=== PATIENT | female | born 1970 | race Caucasian/White ===

== ENCOUNTER → 2017-10-31 15:40 | Outpatient (CLI) | payer BC, SELFPAY ==
--- NOTE | 2017-10-31 15:46 | RAD_ITS ---
STUDY: X-RAY - CERVICAL SPINE REASON FOR EXAM: Female, 47 years old. Pain, no known injury TECHNIQUE: 5 view(s) of the cervical spine were obtained. COMPARISON: None FINDINGS: Normal anterior atlantoaxial articulation. Normal odontoid process. Normal cervical lordosis. There is mild endplate spondylosis of the C6 and C7 vertebrae. Normal disc space heights. There is multi-level osseous foraminal stenosis. The soft tissue structures are unremarkable. RAD/Cerv Spine 4 or 5 Views IMPRESSION: 1. Mild endplate spondylosis of the C6 and C7 vertebral bodies. 2. Multilevel foraminal stenosis. Electronically Signed: Daniel Jay MD at 17:00 EDT , Service support ,
--- NOTE | 2017-10-31 15:46 | RAD_ITS ---
STUDY: X-RAY - THORACIC SPINE REASON FOR EXAM: Female, 47 years old. Pain, no known injury TECHNIQUE: 3 view(s) of the thoracic spine were obtained. COMPARISON: None. FINDINGS: Normal kyphosis of the thoracic spine. There is a mild thoracolumbar levoscoliosis. There is multilevel endplate spondylosis of the thoracic vertebrae. Normal disc space heights. The soft tissue structures are unremarkable. RAD/Thoracic Spine 3 Views IMPRESSION: Mild thoracolumbar levoscoliosis. Diffuse endplate spondylosis. Electronically Signed: Daniel Jay MD at 17:03 EDT , Service support ,
== END ==
LOC: MTRAD 15:43
PROVIDERS: Family Provider Family Medicine; PCP Family Medicine; Visit Provider Nurse Practitioner Adult Health
DX: M54.2 Cervicalgia (principal); G54.0 Brachial plexus disorders
CPT/HCPCS: 72050; 72072

== ENCOUNTER → 2019-02-18 09:06 | Outpatient (CLI) | payer BC, SELFPAY ==
[2016-10-03 12:06] VITALS: BMI 42.3
[2019-02-18 09:09] LABS: Mucous, Urine 0 SEEN /hpf (<or=2+); Red Blood Cells-Urine 0 SEEN /hpf (0-5); Squamous Epithelial Cells - UA 0 SEEN /hpf (5-10)
[2019-02-18 10:35] LABS: Color, Urine Yellow (Yellow); Glucose, Dipstick Normal (Normal); Ketone-Dipstick Negative (Negative); Leukocyte Esterase-Dipstick Negative /ul (Negative); Nitrite-Dipstick Negative (Negative); Occult Blood-Urine Negative /ul (Negative); Protein-Dipstick Negative (Negative); Urine Bilirubin Dipstick Negative (Negative); Urine Clarity Clear (Clear); Urine Urobilinogen Normal (Normal)
[2019-02-18 10:46] LABS: Absolute Lymphocyte Count 3.14 X10^3/uL (0.83-4.51); Basophil% 0.9 % (0-1); Eosinophil# 0.07 X10^3/uL; Eosinophils% 0.6 % (0-5); Hematocrit 37.9 % (37-47); Hemoglobin 12.7 g/dL (12.0-15.0); Lymphocyte # 3.14 X10^3/ul (4.0); Lymphocyte % 28.5 % (19-41); Mean Corp Hgb Conc 33.5 g/dL (32-36); Mean Corpuscular Hgb 29.3 pg (27.0-32.0); Mean Corpuscular Volume 87.5 fL (81-99); Mean Platelet Vol. 11.4 fl (6.2-12.0); Monocyte% 6.3 % (0-10); NRBC Flagged by Analyzer 0 % (0-5); Neutrophil # 6.98 X10^3/uL (2.7-7.7); Neutrophil % 63.3 % (47-70); Platelet Count 337 K/mm3 (150-450); RBC Distribution Width CV 13.4 % (11.6-14.6); Red Blood Count 4.33 M/mm3 (4.2-5.4)
[2019-02-18 10:57] LABS: Bacteria 1+ /hpf (None Seen); White Blood Cells 0-5 SEEN /hpf (0-5)
[2019-02-18 11:13] LABS: ALB/GLOB Ratio 0.9 RATIO (0.9-2.4); AST(SGOT) 10 U/L (15-37); Alanine Aminotransfer ALT/SGPT 26 U/L (13-56); Albumin, Serum 3.7 g/dL (3.2-5.0); Alkaline Phosphatase 85 U/L (45-117); Anion Gap 9 (5-15); BUN 18 mg/dL (7-18); BUN/Creat Ratio 18.9 RATIO (10-20); Calcium,Total 10.1 mg/dL (8.5-10.1); Chloride 103 mmol/L (98-107); Cholesterol 205 mg/dL (200); Creatinine, Serum 0.95 mg/dL (0.55-1.02); EST Glomerular Filtration Rate 67 mL/min (>60); Est Glom Filt Rate - Afr Amer 81 mL/min (>60); Globulin 4.2 g/dL (2.2-4.2); Glucose 107 mg/dL (74-106); Hemoglobin A1c 5.5 % (4.2-6.3); High Density Lipoprotein 51 mg/dL; Potassium 3.5 mmol/L (3.5-5.1); Protein, Total 7.9 g/dL (6.4-8.2); Sodium Level 138 mmol/L (136-145); Thyroid Stim Hormone (TSH) 3.99 uIU/mL (0.358-3.74); Triglycerides 151 mg/dL; Very Low Density Lipoprotein 30 mg/dL (5-40)
== END ==
PROVIDERS: Family Provider Family Medicine; PCP Family Medicine; Visit Provider Family Medicine
DX: I10 Essential (primary) hypertension (principal); E03.9 Hypothyroidism, unspecified; E66.9 Obesity, unspecified; E78.00 Pure hypercholesterolemia, unspecified
CPT/HCPCS: 36415; 80053; 80061; 81001; 83036; 84439; 84443; 85025

== ENCOUNTER → 2019-03-06 07:27 | Outpatient (CLI) | payer BC, SELFPAY ==
--- NOTE | 2019-03-06 07:30 | BI_ITS ---
MAMMOGRAPHY - BILATERAL SCREENING REASON FOR EXAM: Female, 48 years old. Routine annual screening examination. PERTINENT HISTORY: Non-contributory. TECHNIQUE: Digital bilateral breast gabriel (3D mammographic acquisition) in the CC and MLO projections. 2-D mediolateral oblique (MLO) and craniocaudad (CC) views of both breasts were obtained. CAD: Full Field Digital Mammography with Computer Added Detection was performed. COMPARISON: None. Baseline examination. FINDINGS: Breast Composition: The breasts are heterogeneously dense, which may obscure small masses. There are no dominant masses or suspicious calcifications. Benign-appearing bilateral axillary lymph nodes. No other significant abnormalities are identified. BI/SCREEN MAMM (CAD) W/GABRIEL BILAT IMPRESSION: Negative screening mammogram. Yearly followup mammogram recommended. (A) ASSESSMENT CATEGORY: BIRADS Category 2: Benign. A letter regarding these results will be sent to the patient by the facility within 30 days. Approximately 10% of breast cancers are not detected by mammography. A normal mammogram should not delay biopsy of a clinically suspicious abnormality. [id number] Electronically Signed: Leonard William, at 8:58 EST , Service support ,
== END ==
LOC: OPBI 07:27
PROVIDERS: Family Provider Family Medicine; PCP Family Medicine; Referring Provider Family Medicine; Visit Provider Family Medicine
DX: Z12.31 Encounter for screening mammogram for malignant neoplasm of breast (principal)
CPT/HCPCS: 77063; 77067

== ENCOUNTER 2019-03-11 15:00 | Outpatient (RCR) | payer BC, SELFPAY ==
--- NOTE | 2019-02-28 15:01 | HP.PTEVAL ---
Patient's Visit Information SAVANNA BOSS is a 48 year old F referred to Physical Therapy by Yemi Martin MD with a diagnosis of Bilateral Plantar Fascitits. Date of Evaluation: 02/28/19 Physical Therapist: Pam Hale DPT - Visit Plan Frequency: 2x /Week Duration: 4 Weeks Plan: Bilateral Plantar Fascitits: US and manual therapy to plantar fascia-stretching to gastroc - Subjective Findings: She reports that she had achilles tendonitis before- more localized on the inside of the heel and under it. Left side fell in a hole this summer and it really bothered her since. Had PT last time they released them with a tool. She has tried lots of stretching and nothing is really helping. If she wears her sketchers it makes it worse- if she wears tennis shoes they are better. Has to change them in/out. Stands on her feet all day at [employer] [place]- stands on a mat. Left is worse today but normally the right is worse. Pain is located in the inner heel and under. She wears night splints daily. Pain radiates to the the calf. Describes dull and achy but also sharp/shooting. Sleep: wakes her up at night. Does not have to wear steel toed. Wears orthotics- they are 14 years old. Wears them daily. No x-rays or MRI at this time. Worst: 10 Agg: standing and shoes Best: 210 Eases: asprin, ice, changing shoes, rolling them on a frozen, night splints. PMHx: HTN Meds: levothyroxine, provastatin, losartin - Objective Posture: FH, RS, pt is overweight. Gait:bilateral outtoeing, decreased heel strike bilaterally. Hr/TR: able without pain. SLS: 30 sec without LOB mild pes planus. Observation: pes planus bilaterally in standing. Palpation: tender along medial plantar fascia and insertion in the heel. ROM: DF: left: neutral Right: 3 degrees, all other motions WFL. Strength: 5/5 throughout. Flex: Gastroc: severe, Soleus: moderate Hamstring: moderate - Goals Goal 1:: Patient will be I with HEP and progression Goal Time Frame: 4-6 Weeks Goal 2:: Patient will demo 10 degrees of DF bilaterally Goal Time Frame: 4-6 Weeks Goal 3:: Patient will report 0/10 pain for 3 days consecutively Goal Time Frame: 4-6 Weeks - Rehabilitation Potential Physical Therapy Diagnosis: Patient presents with decreased flexibility and increased inflammation along the plantar fascia increasing pain with work and ADL's. Rehabilitation Potential: Fair - Anticipated Interventions Patient/Client Instruction: Educate patient on: Benefits of Fitness Program Therapeutic Exercise to Include: Strength training, Endurance training, Balance training, Agility training, Body mechanics, Postural training, Flexibilty training, Passive ROM, Active ROM Manual Therapy Techniques to Include: Mobilization, Functional dry needling, Soft tissue mobilization For the Purpose of:: To improve nutrient delivery to tissue Cryotherapy (ice pack, ice massage): Yes Thermo therapy (hot pack): Yes Ultrasound (thermal/non thermal): Yes Thank you for the opportunity to evaluate your patient. For Medicare and Medicare HMO plans, please review the plan of care and approve it. It will need to be FAXED BACK to us at [phone] for Medicare purposes. For Medicare only, by signing this I certify the plan of care. Please let me know if there are questions or concerns regarding this plan of care. Physician Signature: Date:
--- NOTE | 2019-05-31 07:49 | HP.PT.NRP ---
HP - Discharge Summary (1) - Patient Information SAVANNA BOSS was seen in my office for initial evaluation on 02/28/19. The following Plan of Care was established for this patient: Initial Frequency: 2x /Week Initial Duration: 4 Weeks - Anticipated Interventions Patient/Client Instruction: Educate patient on: Benefits of Fitness Program Therapeutic Exercise to Include: Strength training, Endurance training, Balance training, Agility training, Body mechanics, Postural training, Flexibilty training, Passive ROM, Active ROM Manual Therapy Techniques to Include: Mobilization, Functional dry needling, Soft tissue mobilization For the Purpose of:: To improve nutrient delivery to tissue Cryotherapy (ice pack, ice massage): Yes Thermo therapy (hot pack): Yes Ultrasound (thermal/non thermal): Yes This patient was last seen in our office . Pertinent comments regarding their Physical therapy will appear below: Patient has not attended physical therapy in over 30 days- appropriate to be d/c from PT and return to MD for further evaluation as necessary. At this point I will be discontinuing this patient from physical therapy. I would be happy to see this patient again in the future if found appropriate by the physician. Thank you! ZINA BobbyT
== END 2019-03-11 19:00 | disposition home or self-care (01) ==
LOC: PT 15:00
PROVIDERS: Family Provider Family Medicine; PCP Family Medicine; Referring Provider Family Medicine; Visit Provider Family Medicine
DX: M72.2 Plantar fascial fibromatosis (principal)
CPT/HCPCS: 97035; 97140; 97161

== ENCOUNTER → 2019-10-10 09:53 | Outpatient (CLI) | payer BC, SELFPAY ==
[2016-10-03 12:06] VITALS: BMI 42.3
--- NOTE | 2019-10-10 09:56 | RAD_ITS ---
STUDY: X-RAY - LEFT ANKLE REASON FOR EXAM: Female, 49 years old. Ankle injury about a year ago, pt has pain and swelling off and on recently, lateral pain just above the heel TECHNIQUE: 3 view(s) of the ankle. COMPARISON: None. FINDINGS: Normal visualized distal tibia and fibula. Normal medial and lateral malleoli. Normal tibiotalar articulation and ankle mortise. Normal visualized talus. Prominent calcaneal spurs The visualized subtalar, talonavicular, calcaneocuboid and tarsal articulations are normal. The soft tissue structures are unremarkable. RAD/Ankle min 3 Views IMPRESSION: Calcaneal spurs, no demonstrated fracture or suspicious osseous lesion Electronically Signed: Domenico Laughlin MD at 10:15 EDT , Service support ,
== END ==
LOC: MTRAD 09:55
PROVIDERS: PCP Family Medicine; Referring Provider Family Medicine; Visit Provider Family Medicine
DX: M25.572 Pain in left ankle and joints of left foot (principal)
CPT/HCPCS: 73610

== ENCOUNTER → 2020-04-03 09:32 | Outpatient (CLI) | payer BC, SELFPAY ==
[2016-10-03 12:06] VITALS: BMI 42.3
[2020-04-03 10:43] LABS: Anion Gap 5 (5-15); BUN 21 mg/dL (7-18); BUN/Creat Ratio 26.4 RATIO (10-20); Calcium,Total 9.9 mg/dL (8.5-10.1); Chloride 107 mmol/L (98-107); EST Glomerular Filtration Rate 82 mL/min (>60); Est Glom Filt Rate - Afr Amer 99 mL/min (>60); Glucose 80 mg/dL (74-106); Sodium Level 136 mmol/L (136-145)
[2020-04-03 12:37] LABS: Microalbumin,Random Urine < 5.0 mg/L (NO RANGE EST.)
== END ==
PROVIDERS: PCP Family Medicine; Referring Provider Family Medicine; Visit Provider Family Medicine
DX: I10 Essential (primary) hypertension (principal)
CPT/HCPCS: 36415; 80048; 82043; 82570

== ENCOUNTER → 2020-04-09 08:33 | Outpatient (CLI) | payer BC, SELFPAY ==
[2016-10-03 12:06] VITALS: BMI 42.3
[2020-04-09 10:29] LABS: T4 Free Direct 0.97 ng/dL (0.76-1.46); Thyroid Stim Hormone (TSH) 2.21 uIU/mL (0.358-3.74)
== END ==
PROVIDERS: PCP Family Medicine; Referring Provider Family Medicine; Visit Provider Family Medicine
DX: E03.9 Hypothyroidism, unspecified (principal)
CPT/HCPCS: 36415; 84439; 84443

== ENCOUNTER → 2021-08-27 | Outpatient (CLI) | payer BC, SELFPAY ==
[2021-08-27 10:31] LABS: Microalbumin:Creatinine Ratio 13.6 mg/g CRE (<30 mg/g CRE)
[2021-08-27 10:50] LABS: ALB/GLOB Ratio 0.9 RATIO (0.9-2.4); AST(SGOT) 17 U/L (15-37); Alanine Aminotransfer ALT/SGPT 33 U/L (13-56); Albumin, Serum 3.7 g/dL (3.2-5.0); Alkaline Phosphatase 78 U/L (45-117); Anion Gap 7 (5-15); BUN 21 mg/dL (7-18); BUN/Creat Ratio 27.3 RATIO (10-20); Calcium,Total 10.2 mg/dL (8.5-10.1); Chloride 103 mmol/L (98-107); Creatinine, Serum 0.77 mg/dL (0.55-1.02); EST Glomerular Filtration Rate 85 mL/min (>60); Est Glom Filt Rate - Afr Amer 103 mL/min (>60); Glucose 96 mg/dL (74-106); Potassium 3.7 mmol/L (3.5-5.1); Protein, Total 7.7 g/dL (6.4-8.2); Sodium Level 135 mmol/L (136-145); Thyroid Stim Hormone (TSH) 2.93 uIU/mL (0.358-3.74)
== END | disposition home or self-care (01) ==
LOC: MTLAB 07:15
PROVIDERS: PCP Family Medicine; Referring Provider Family Medicine; Visit Provider Family Medicine
DX: I10 Essential (primary) hypertension (principal); E03.9 Hypothyroidism, unspecified
CPT/HCPCS: 36415; 80053; 82043; 82570; 84443

== ENCOUNTER 2023-03-15 16:00 | Outpatient (RCR) | payer BC, SELFPAY ==
--- NOTE | 2023-02-22 18:39 | HP.PTEVAL ---
Patient's Visit Information Visit Information Visit Information: SAVANNA BOSS is a 52 year old F referred to Physical Therapy by Dr. Diallo Burnham DPM with a diagnosis of R Achilles Tendonitis/tendonopathy. Date of Evaluation: 02/22/23 Physical Therapist: ATTILA Guillory Visit Plan Frequency: 3x /Week Duration: 6 Weeks Plan: 3X/ week for 6 weeks for foam rolling and ROM and stretching of R gastroc and HS, grasten to Achilles on the R and calf on the R, gait training (no push off) balance, R ankle strength with HEP. (Ionto is checked on the script but no dex ordered. May try in a few weeks if no progress made but will have to call Dr for dex order and check insurance) with HEP HEP: supine green strap HS stretch (20 sec X 5) and long sitting gastroc towel stretch (20 sec X 5) Subjective Subjective: Pt has a knot on the back of her heel. She has no idea how it occurred and she has had if for awhile and really noticed in in July. It has not gone anywhere. She has tried night sprints, compression, stretching it (blue rocker). They did an x-ray and sent to PT. She is getting new orthotics. is hoping that she is 60% better. She was given stretches and has been doing them since Monday (wall stretch, eccentric lowering on the R). She has iced it. 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 Today is better since she has stretched it a little more than normal. At night it is throbbing. Feels like a constant cramp in the calf today. Pain R achilles pain: Pain Intensity (Out of 10): 0 Pain Intensity Range: 6 Objective Objective: Gait: Walks with decrease stance time on the R LE and does not walk with decreased heel to toe gait pattern and push off B (worse on the R) Ankle AROM: L ankle DF 0, 64 PF, 30 INV, 15 EV R ankle DF -6, 60 PF, 30 INV, 15 EV Ankle MMT: L DF 9.5 and L PF 18.1, L INV 6.6 and L EV 6 R DF 7.1 and L PF 10.2, INV 5, EV 7.2 Standing heel and toe raises: Pt has increase pain on the R Achilles with both of these motions Palpation: large lump at the medial aspect of R achilles and very tender to the touch Pt have very tight HS and gastroc B Balance/Special Test Scores Lower Extremity Functional Score: 64 Goals Goal 1:: I HEP Rehabilitation Potential Rehabilitation Potential: Good Anticipated Interventions Patient/Client Instruction: Educate patient on: Condition and Plan of Care For the Purpose of:: To decrease pain, To decrease swelling/inflammation, To increase ROM, To improve nutrient delivery to tissue, To improve muscle performance and motor function, To improve ability to perform ADL's, To increase tolerance to activity/condition/position, To improve performance and independence with ADL's, To improve ability of physical actions for home/community/work/leisure, To improve gait and locomotor functions, To improve health of tissue, To decrease soft tissue restriction and To increase flexibility/ROM Therapeutic Exercise to Include: Strength training, Balance training, Flexibilty training, Gait and locomotor training, Neuromotor development, Passive ROM and Active ROM For the Purpose of:: To decrease pain, To decrease swelling/inflammation, To increase ROM, To improve nutrient delivery to tissue, To improve muscle performance and motor function, To improve ability to perform ADL's, To increase tolerance to activity/condition/position, To improve performance and independence with ADL's, To improve ability of physical actions for home/community/work/leisure, To improve gait and locomotor functions, To improve health of tissue, To decrease soft tissue restriction, To increase flexibility/ROM, To improve balance and To improve safety with gait Functional Training to Include: Gait training For the Purpose of:: To improve gait and locomotor functions Manual Therapy Techniques to Include: Mobilization, Passive ROM and Soft tissue mobilization Comment: deyvi For the Purpose of:: To decrease pain, To decrease swelling/inflammation, To increase ROM, To improve nutrient delivery to tissue, To increase oxygenation perfusion, To improve muscle performance and motor function, To improve performance and independence with ADL's, To improve health of tissue, To decrease soft tissue restriction and To increase flexibility/ROM Text: Thank you for the opportunity to evaluate your patient. For Medicare and Medicare HMO plans, please review the plan of care and approve it. It will need to be FAXED BACK to us at [phone] for Medicare purposes. For Medicare only, by signing this I certify the plan of care. Please let me know if there are questions or concerns regarding this plan of care. Physician Signature: Date:
--- NOTE | 2023-06-07 16:40 | HP.PTDCSUM ---
Discharge Summary D/C summary: It has been my pleasure to treat SAVANNA BOSS referred by Dr. Diallo Burnham DPSallie, with the diagnosis of R Achilles Tendonitis/tendonopathy for a total of 8 visit(s). Discharge Date: Please see the following information for a summary of their discharge status. Subjective Subjective: Pain is pretty good today, standing a lot has the pain higher than normal. Left calf is starting to hurt as well. Pain R achilles pain: Pain Intensity (Out of 10): 6 Objective Objective/Function: Managed exercises well, pain remained relatively stable throughout session. Some VC required for proper exercise technique. Goals Goal 1:: I HEP Plan Plan: 3X/ week for 6 weeks for foam rolling and ROM and stretching of R gastroc and HS, grasten to Achilles on the R and calf on the R, gait training (no push off) balance, R ankle strength with HEP. (Ionto is checked on the script but no dex ordered. May try in a few weeks if no progress made but will have to call Dr for dex order and check insurance) with HEP D/C Information d/c sentence: If there are questions or concerns regarding this patient's physical therapy, please feel free to call me at [phone]. Thank you for the referral of this patient. Sincerely, Ara Mojica, MPT Balance/Gait/Functional tests Balance/Special Test Scores Lower Extremity Functional Score: 64
== END 2023-03-15 19:00 | disposition home or self-care (01) ==
LOC: PT 16:00
PROVIDERS: PCP Family Medicine; Visit Provider Student in an Organized Health Care Education/Training Program
DX: M76.61 Achilles tendinitis, right leg (principal)
CPT/HCPCS: 97110; 97140; 97161

== ENCOUNTER → 2023-05-10 | Outpatient (CLI) | payer BC, SELFPAY ==
--- NOTE | 2023-05-10 16:06 | MRI_ITS ---
STUDY: MRI RIGHT ANKLE WITHOUT CONTRAST REASON FOR EXAM: Female, 52 years old. Achilles tendinosis, lump marked with bead. TECHNIQUE: Standardized fat and water weighted pulse sequences were obtained in all 3 orthogonal planes. COMPARISON: Left ankle radiographs dated 10/10/2019. FINDINGS: There is mild posterior tibialis tenosynovitis. Intact posterior tibialis tendon. Normal flexor digitorum longus tendon. Normal flexor hallucis longus tendon. Normal peroneus longus and brevis tendons. Normal tibialis anterior tendon. Normal extensor hallucis longus tendon. Normal extensor digitorum longus tendons. There is mild thickening/tendinosis of the distal 4 cm of the Achilles tendon with anterior surface fraying of the distal Achilles tendon insertion (sagittal STIR series 8 images 10-12). There is mild retrocalcaneal bursitis (sagittal STIR series 8 image 11). Mild marrow stress edema in the posterior calcaneal tuberosity. Normal plantar fascia. There are small plantar and posterior calcaneal spurs. Normal intrinsic muscles of the rearfoot. Normal distal tibiofibular syndesmotic ligamentous complex. Normal lateral ligamentous complex. Normal subtalar ligaments and sinus tarsi. Normal deltoid ligamentous complexes. Normal plantar calcaneonavicular (spring) ligament. Normal tibiotalar articulation. Normal talar dome. Normal subtalar articulations. Normal talonavicular articulation. Normal calcaneocuboid articulation. Normal navicular-cuneiform articulations. There is minimal subcutaneous soft tissue edema along the medial and lateral aspects of the ankle. MRI/Lower Ext Joint Only (Routine) IMPRESSION: Mild tendinosis of the distal 4 cm of the Achilles tendon with anterior surface fraying of the distal Achilles tendon insertion. Mild retrocalcaneal bursitis and mild marrow stress edema in the posterior calcaneal tuberosity. Small plantar and posterior calcaneal spurs. Minimal subcutaneous soft tissue edema along the medial and lateral aspects of the ankle. Mild posterior tibialis tenosynovitis. Electronically Signed: Juan Pablo Dennis MD at 8:58 EST ,
== END | disposition home or self-care (01) ==
LOC: MRI 16:04
PROVIDERS: PCP Family Medicine; Referring Provider Student in an Organized Health Care Education/Training Program; Visit Provider Student in an Organized Health Care Education/Training Program
DX: M76.61 Achilles tendinitis, right leg (principal)
CPT/HCPCS: 73721

== ENCOUNTER 2023-06-14 16:30 | Outpatient (RCR) | payer BC, SELFPAY ==
--- NOTE | 2023-05-31 17:46 | HP.PTEVAL ---
Patient's Visit Information Visit Information Visit Information: SAVANNA BOSS is a 52 year old F referred to Physical Therapy by Dr. Diallo Burnham DPM with a diagnosis of Posterior tibial tendonitis, retro calcaneal bursitis, Achilles tendonitis. Date of Evaluation: 05/31/23 Physical Therapist: ATTILA Guillory Visit Plan Frequency: 2-3x /Week Duration: 6 Weeks Plan: 2-3X/ week for 6 weeks for R gastroc/Achilles stretching (pt does better at stretching with her R knee slightly bent due to her R knee hyperextension), foam rolling to the R gastroc, balance, strength, proprioception. Pt feels that the graston really helpe...will call and see if can get an order for eval and treat or specifically graston.... HEP: towel stretch and slant board stretch at home with knee slightly bent Ionto not covered Subjective Subjective: Pt went back for an MRI and there is no tear. Dr said it was really inflammed. Dr said 6 more weeks of therapy. She feels that she favors her R foot a lot and walks with her R forefoot abducted. If she has a weekend when she does not do a lot it feels better and then work starts up again and at the end of the day it feels tight and pulls up into her calf, It is not as bad as when she first started PT but it is still tight and still there and can not walk as near as fast as she used too. It does not wake her up at night. She does wear a compression sleeve to work and it does not hurt as much but she is ready to take it off at the end of the day. She has new inserts inside her shoes. She goes back to the Dr in June. Stairs really hurt her especially goind down or squatting is really bad. She had an injection of cortizone before her MRI... it lasted one day. She has a slant board at home. And stretches with a towel at home Pain R heel pain: Pain Intensity (Out of 10): 0 Pain Intensity Range: 6 Comment: at end or work day Objective Objective: Gait: Walks with R forefoot into abduction and decreased heel to toe pattern. IF she walks without forefoot abduction and walks more straight on she has increase pulling of the Achilles. Pt is able to heel and toe raise.... she struggles with single eccentric lower on the R Pt hyperextends her R knee and feels more of an achilles stretch if she slightly bends her R knee. LE MMT: R DF 12.4 and L 13.3 R DF 20 and L 19.3 R INV 11 and L 11 R EV 10.2 and L 12.9 R ankle AROM 2 DF, 74 PF, 30 INV, 20 EV L ankle AROM 5, 78, 31, 20 Girth measurements: Medial to lateral Mal R 25 and L 24.6 Balance/Special Test Scores Lower Extremity Functional Score: 59 Goals Goal 1:: I HEP Goal Time Frame: 6-8 Weeks Goal 2:: Be able to walk with normal gait pattern, heel to toe, avoiding forefoot abduction Goal Time Frame: 6-8 Weeks Goal 3:: Increase R ankle DF (at time of the eval R DF 2 and L 5 Goal Time Frame: 6-8 Weeks Goal 4:: Be able to get through her day at work with 2/10 or less pain Goal Time Frame: 6-8 Weeks Goal 5:: Be able to complete 3 X 10 R eccentric lower from PF single leg without pain or weakness Goal Time Frame: 6-8 Weeks Rehabilitation Potential Rehabilitation Potential: Good Anticipated Interventions Patient/Client Instruction: Educate patient on: Condition and Plan of Care For the Purpose of:: To decrease pain, To decrease swelling/inflammation, To increase ROM, To improve nutrient delivery to tissue, To improve muscle performance and motor function, To improve ability to perform ADL's, To increase tolerance to activity/condition/position, To improve performance and independence with ADL's, To decrease level of supervision to perform tasks, To improve ability of physical actions for home/community/work/leisure, To improve gait and locomotor functions, To improve health of tissue, To decrease soft tissue restriction, To increase flexibility/ROM, To improve endurance, To improve balance and To improve safety with gait Therapeutic Exercise to Include: Strength training, Endurance training, Balance training, Postural training, Flexibilty training, Gait and locomotor training, Passive ROM and Active ROM For the Purpose of:: To decrease pain, To decrease swelling/inflammation, To increase ROM, To improve nutrient delivery to tissue, To increase oxygenation perfusion, To improve muscle performance and motor function, To improve ability to perform ADL's, To increase tolerance to activity/condition/position, To improve performance and independence with ADL's, To decrease level of supervision to perform tasks, To improve ability of physical actions for home/community/work/leisure, To improve gait and locomotor functions, To improve health of tissue, To decrease soft tissue restriction and To increase flexibility/ROM Functional Training to Include: Gait training For the Purpose of:: To improve gait and locomotor functions and To improve safety with gait Manual Therapy Techniques to Include: Mobilization, Passive ROM and Soft tissue mobilization For the Purpose of:: To decrease pain, To increase ROM, To improve nutrient delivery to tissue, To improve muscle performance and motor function, To improve gait and locomotor functions, To improve health of tissue, To decrease soft tissue restriction and To increase flexibility/ROM Text: Thank you for the opportunity to evaluate your patient. For Medicare and Medicare HMO plans, please review the plan of care and approve it. It will need to be FAXED BACK to us at [phone] for Medicare purposes. For Medicare only, by signing this I certify the plan of care. Please let me know if there are questions or concerns regarding this plan of care. Physician Signature: Date:
--- NOTE | 2023-08-01 07:29 | HP.PT.NRP ---
Patient Information Patient Information: SAVANNA BOSS was seen in my office for initial evaluation on 05/31/23. The following Plan of Care was established for this patient: POC Established Initial Frequency: 2-3x /Week Initial Duration: 6 Weeks Anticipated Interventions Patient/Client Instruction: Educate patient on: Condition and Plan of Care For the Purpose of:: To decrease pain, To decrease swelling/inflammation, To increase ROM, To improve nutrient delivery to tissue, To improve muscle performance and motor function, To improve ability to perform ADL's, To increase tolerance to activity/condition/position, To improve performance and independence with ADL's, To decrease level of supervision to perform tasks, To improve ability of physical actions for home/community/work/leisure, To improve gait and locomotor functions, To improve health of tissue, To decrease soft tissue restriction, To increase flexibility/ROM, To improve endurance, To improve balance and To improve safety with gait Therapeutic Exercise to Include: Strength training, Endurance training, Balance training, Postural training, Flexibilty training, Gait and locomotor training, Passive ROM and Active ROM For the Purpose of:: To decrease pain, To decrease swelling/inflammation, To increase ROM, To improve nutrient delivery to tissue, To increase oxygenation perfusion, To improve muscle performance and motor function, To improve ability to perform ADL's, To increase tolerance to activity/condition/position, To improve performance and independence with ADL's, To decrease level of supervision to perform tasks, To improve ability of physical actions for home/community/work/leisure, To improve gait and locomotor functions, To improve health of tissue, To decrease soft tissue restriction and To increase flexibility/ROM Functional Training to Include: Gait training For the Purpose of:: To improve gait and locomotor functions and To improve safety with gait Manual Therapy Techniques to Include: Mobilization, Passive ROM and Soft tissue mobilization For the Purpose of:: To decrease pain, To increase ROM, To improve nutrient delivery to tissue, To improve muscle performance and motor function, To improve gait and locomotor functions, To improve health of tissue, To decrease soft tissue restriction and To increase flexibility/ROM Last Seen Last Seen: This patient was last seen in our office 06/14/23. Pertinent comments regarding their Physical therapy will appear below: KATIE PT At this point I will be discontinuing this patient from physical therapy. I would be happy to see this patient again in the future if found appropriate by the physician. Thank you! Ara Mojica, ATTILA Balance/Gait/Functional tests Balance/Special Test Scores Lower Extremity Functional Score: 59
== END 2023-06-14 19:00 | disposition home or self-care (01) ==
LOC: PT 16:30
PROVIDERS: PCP Family Medicine; Referring Provider Student in an Organized Health Care Education/Training Program; Visit Provider Student in an Organized Health Care Education/Training Program
DX: M76.61 Achilles tendinitis, right leg (principal); M76.821 Posterior tibial tendinitis, right leg
CPT/HCPCS: 97110; 97140; 97161

== ENCOUNTER → 2023-07-21 | Outpatient (CLI) | payer BC, SELFPAY ==
[2023-07-21 09:26] LABS: Absolute Lymphocyte Count 2.56 X10^3/uL (0.83-4.51); Absolute Neutrophil Count 5.4 X10^3/uL (2.0-7.7); Basophil% 1.1 % (0-1); Eosinophil# 0.08 X10^3/uL; Eosinophils% 0.9 % (0-5); Hematocrit 35.7 % (37-47); Hemoglobin 12.3 g/dL (12.0-15.0); Lymphocyte # 2.56 X10^3/ul (0.83-4.51); Mean Corp Hgb Conc 34.5 g/dL (32-36); Mean Corpuscular Hgb 30.1 pg (27.0-32.0); Mean Corpuscular Volume 87.3 fL (81-99); Monocyte# 0.68 X10^3/uL; Monocyte% 7.7 % (0-10); NRBC Flagged by Analyzer 0 % (0-5); Neutrophil # 5.41 X10^3/uL (2.7-7.7); Neutrophil % 61.2 % (47-70); Platelet Count 348 K/mm3 (150-450); RBC Distribution Width CV 13.3 % (11.6-14.6); RBC Distribution Width SD 42.5 fl (35.1-43.9); Red Blood Count 4.09 M/mm3 (4.2-5.4); White Blood Count 8.8 K/mm3 (4.4-11.0)
[2023-07-21 09:53] LABS: AST(SGOT) 16 U/L (15-37); Alanine Aminotransfer ALT/SGPT 26 U/L (13-56); Albumin, Serum 3.8 g/dL (3.2-5.0); Alkaline Phosphatase 88 U/L (45-117); Anion Gap 4 (5-15); BUN 18 mg/dL (7-18); BUN/Creat Ratio 22.1 RATIO (10-20); Calcium,Total 9.9 mg/dL (8.5-10.1); Chloride 105 mmol/L (98-107); Cholesterol 193 mg/dL (200); Creatinine, Serum 0.82 mg/dL (0.55-1.02); EST Glomerular Filtration Rate 79 mL/min (>60); Est Glom Filt Rate - Afr Amer 95 mL/min (>60); Globulin 3.9 g/dL (2.2-4.2); Glucose 90 mg/dL (74-106); High Density Lipoprotein 61 mg/dL; Potassium 3.7 mmol/L (3.5-5.1); Protein, Total 7.7 g/dL (6.4-8.2); Sodium Level 136 mmol/L (136-145); T4 Free Direct 0.88 ng/dL (0.76-1.46); Thyroid Stim Hormone (TSH) 2.41 uIU/mL (0.358-3.74); Triglycerides 63 mg/dL; Very Low Density Lipoprotein 13 mg/dL (5-40)
[2023-07-22 06:09] LABS: V-Zoster IgG (Immunity) 3256 index (Immune >165)
== END | disposition home or self-care (01) ==
LOC: LAB 08:19
PROVIDERS: PCP Nurse Practitioner Family; Referring Provider Nurse Practitioner Family; Visit Provider Nurse Practitioner Family
DX: Z00.01 Encounter for general adult medical examination with abnormal findings (principal); Z78.9 Other specified health status; I10 Essential (primary) hypertension; E78.5 Hyperlipidemia, unspecified; E03.9 Hypothyroidism, unspecified
CPT/HCPCS: 36415; 80053; 80061; 84439; 84443; 85025; 86787

== ENCOUNTER → 2023-07-25 | Outpatient (CLI) | payer BC, SELFPAY ==
--- NOTE | 2023-07-25 16:32 | BI_ITS ---
MAMMOGRAPHY - BILATERAL SCREENING REASON FOR EXAM: Female, 53 years old. Routine annual screening examination. PERTINENT HISTORY: Non-contributory. TECHNIQUE: Digital bilateral breast gabriel (3D mammographic acquisition) in the CC and MLO projections. 2-D mediolateral oblique (MLO) and craniocaudad (CC) views of both breasts were obtained. CAD: Full Field Digital Mammography with Computer Added Detection was performed. COMPARISON: Comparison is made with prior study March 06, 2019. FINDINGS: Breast Composition: The breasts are heterogeneously dense, which may obscure small masses. There are no dominant masses or suspicious calcifications. Stable bilateral fat containing axillary lymph nodes. No other significant abnormalities are identified. There has been no significant change since the prior study. BI/SCRN MAMM (CAD)W/GABRIEL BILAT IMPRESSION: Stable bilateral screening mammogram. Yearly follow-up mammogram recommended. (A) ASSESSMENT CATEGORY: BIRADS Category 2: Benign. A letter regarding these results will be sent to the patient by the facility within 30 days. Approximately 10% of breast cancers are not detected by mammography. A normal mammogram should not delay biopsy of a clinically suspicious abnormality. [id number] Electronically Signed: Leonard William MD at 9:33 EDT ,
== END | disposition home or self-care (01) ==
LOC: OPBI 07-26 07:18
PROVIDERS: PCP Nurse Practitioner Family; Referring Provider Nurse Practitioner Family; Visit Provider Nurse Practitioner Family
DX: Z12.31 Encounter for screening mammogram for malignant neoplasm of breast (principal)
CPT/HCPCS: 77063; 77067

== ENCOUNTER 2023-12-01 13:39 | Emergency (ER) | payer BC, SELFPAY ==
[2023-12-01] VITALS (7 sets, daily range): BP systolic 109–122; BP diastolic 71–90; PULSE 72–87; RESP 16–18; TEMP 36.4–36.5; O2SAT 98–100; BMI 38.1
[2023-12-01 15:35] LABS: Mucous, Urine 0 SEEN /hpf (<or=2+); Red Blood Cells-Urine 0 SEEN /hpf (0-5)
[2023-12-01 15:37] LABS: Color, Urine Yellow (Yellow); Glucose, Dipstick Normal (Normal); Ketone-Dipstick Negative (Negative); Leukocyte Esterase-Dipstick 100 /ul (Negative); Nitrite-Dipstick Negative (Negative); Occult Blood-Urine Negative /ul (Negative); Protein-Dipstick Negative (Negative); Specific Gravity, Urine 1.005 (1.002-1.030); Urine Bilirubin Dipstick Negative (Negative); Urine Clarity Clear (Clear); Urine Urobilinogen Normal (Normal)
[2023-12-01 15:45] LABS: Absolute Lymphocyte Count 3.18 X10^3/uL (0.83-4.51); Absolute Neutrophil Count 8.1 X10^3/uL (2.0-7.7); Basophil# 0.09 X10^3/uL; Basophil% 0.7 % (0-1); Eosinophil# 0.07 X10^3/uL; Eosinophils% 0.6 % (0-5); Hematocrit 35.8 % (37-47); Hemoglobin 12.3 g/dL (12.0-15.0); Lymphocyte # 3.18 X10^3/ul (0.83-4.51); Lymphocyte % 25.7 % (19-41); Mean Corp Hgb Conc 34.4 g/dL (32-36); Mean Corpuscular Hgb 30.1 pg (27.0-32.0); Mean Corpuscular Volume 87.7 fL (81-99); Mean Platelet Vol. 10.7 fl (6.2-12.0); Monocyte# 0.88 X10^3/uL; Monocyte% 7.1 % (0-10); NRBC Flagged by Analyzer 0 % (0-5); Neutrophil # 8.09 X10^3/uL (2.7-7.7); Neutrophil % 65.6 % (47-70); Platelet Count 386 K/mm3 (150-450); RBC Distribution Width CV 13.2 % (11.6-14.6); RBC Distribution Width SD 42.4 fl (35.1-43.9); Red Blood Count 4.08 M/mm3 (4.2-5.4); White Blood Count 12.4 K/mm3 (4.4-11.0)
--- NOTE | 2023-12-01 15:46 | EDS_ITS ---
HPI History of Present Illness Chief Complaint: Abd Pain Informant: patient and spouse/S.O. Narrative Narrative: 53-year-old female presenting to the emergency room with left upper quadrant pain. Patient states that she began to have some discomfort on Monday. She states that she thought that it was gas but despite OTC treatment she has not improved. The patient states that her pain gets worse after eating. She states that it constantly hurts but is more discomfort but then after she eats it increases. She denies any black or bloody stools. No urinary symptoms. No history of pancreatic or biliary disease. She has been on phenteramine for the past several months. [facility] Medical History (Updated 12/01/23 @ 18:[address] Jose Luis Weber DO) Hypertension Home Medications ?Medication ?Instructions ?Recorded ?Last Taken ?Type levothyroxine 50 mcg tablet 50 mcg PO DAILY 08/16/16 10/03/16 History pravastatin 20 mg tablet 20 mg PO DAILY 08/16/16 Unknown History (Pravachol) valsartan 80 1 ea PO DAILY 08/16/16 Unknown History mg-hydrochlorothiazide 12.5 mg tablet docusate sodium 100 mg capsule 100 mg PO BID PRN PRN Constipation 10/03/16 Unknown Rx (DOK) ##60 oxycodone 5 mg tablet 5 mg PO Q6H PRN PRN Mod-Severe 10/03/16 Unknown Rx Pain (4-10/10) ##20 dicyclomine 10 mg capsule 20 mg (2 x 10 mg) PO TIDAC #30 12/01/23 Unknown Rx CAPSULES Allergy/AdvReac Type Severity Reaction Status Date / Time No Known Allergies Allergy Verified 12/01/23 15:26 Surgical History (Updated 12/01/23 @ 15:54 by Janeth Michelle) H/O: hysterectomy History of tonsillectomy Social History Smoking Status: Never smoker ROS ROS ED Constitutional Constitutional ED: Denies chills, fever(s) or weight loss Eyes Eyes: Denies change in vision or diplopia ENT ENT ED: Denies ear pain, rhinorrhea or sore throat Cardiovascular Cardiovascular: Denies chest pain, orthopnea, palpitations or racing heartbeat Respiratory/Chest Respiratory/Chest: Denies cough, dyspnea or orthopnea Gastrointestinal Gastrointestinal: Reports abdominal pain; Denies diarrhea, nausea or vomiting Genitourinary Genitourinary ED: Denies dysuria, hematuria or urinary frequency Musculoskeletal Musculoskeletal: Denies arthralgias, back pain or myalgias Integumentary Denies abscess or rash Neurologic Neurologic: Denies headache(s) or weakness Psychiatric Psychiatric: Denies anxiety, depression, suicidal ideation or suicidal thoughts Endocrine Endocrinology: Denies polydipsia, polyphagia or polyuria Allergic/Immunologic Allergic/Immunologic ED: Denies mouth swelling, tongue swelling or urticaria EXAM Physical Exam Const Vital Signs: 12/01/23 13:42 12/01/23 15:40 12/01/23 16:15 Temperature 97.7 F L Temperature Source Temporal Pulse Rate 87 74 Respiratory Rate 18 16 Blood Pressure 122/90 H 115/79 109/83 H Blood Pressure Mean 100 91 92 Pulse Ox 100 100 Oxygen Delivery Method Room Air Room Air 12/01/23 16:30 12/01/23 16:45 12/01/23 17:00 Temperature Temperature Source Pulse Rate Respiratory Rate Blood Pressure 115/76 118/71 111/84 H Blood Pressure Mean 88 85 93 Pulse Ox Oxygen Delivery Method 12/01/23 18:56 Temperature 97.6 F L Temperature Source Pulse Rate 72 Respiratory Rate 18 Blood Pressure 111/84 H Blood Pressure Mean 93 Pulse Ox 98 Oxygen Delivery Method Positive well nourished and well developed General Appearance ED: well developed HEENT Reports normocephalic, head/scalp atraumatic and moist mucous membranes Eyes PERRL and EOMs intact bilaterally Neck no lymphadenopathy, supple and no JVD Resp normal respiratory effort and clear to auscultation bilaterally Cardio regular rate, regular rhythm and no murmurs GI no masses Inspection: Negative for abdominal distention Auscultation: normoactive bowel sounds Palpation: soft and tender epigastric and LUQ; Negative for guarding or rebound tenderness present Back/Spine no CVA tenderness and normal ROM Extremity normal to inspection General Extremety ED: Negative for edema General Extremity: Negative for edema Neuro oriented x3 and CN's II-XII intact bilaterally Sensorium / Orientation: alert Motor Exam: strength 5/5 throughout Psych mental status grossly normal Mood & Affect: Negative for depressed or tearful Skin no rashes or lesions noted and no wounds MDM MDM MDM Narrative Medical decision making narrative: Differential diagnosis includes but not limited to gastric duodenal ulcer pancreatitis splenic infarct renal infarct colitis gastroparesis gastric outlet obstruction biliary colic White count 12.4 hemoglobin 12.3 plate count of 386 BUN of 23 creatinine 0.86. Normal liver panel normal lipase test is negative urinalysis 50-100 white cells 10-25 squamous cells and 1+ bacteria I think this is can contaminated. CT abdomen pelvis with IV contrast demonstrates some mild inflammatory changes around the distal transverse colon. There is noted to be cholelithiasis. I reviewed the case with gastroenterology Dr. Jacinto. He feels like this is most likely a case of mild ischemic colitis. He recommends symptomatic treatment with Bentyl and follow-up. I do not think that this is biliary colic at this time. She has no right upper quadrant tenderness over the gallbladder. Her LFTs are normal. White count is minimally elevated at 12.4. Patient is comfortable with follow-up and treatment with Bentyl. Return if worsening or concerns History & Record Review Discussion w/independent historian: Patient Lab Data Attestation: I reviewed the patient's lab results. Labs: Laboratory Results - last 24 hr 12/01/23 12/01/23 15:15 15:20 WBC 12.4 H RBC 4.08 L Hgb 12.3 Hct 35.8 L MCV 87.7 MCH 30.1 MCHC 34.4 RDW Std Deviation 42.4 RDW Coeff of Carol 13.2 Plt Count 386 MPV 10.7 Immature Gran % (Auto) 0.300 Neut % (Auto) 65.6 Lymph % (Auto) 25.7 Lassen % (Auto) 7.1 Eos % (Auto) 0.6 Baso % (Auto) 0.7 Absolute Neuts (auto) 8.1 H Absolute Lymphs (auto) 3.18 Nucleated RBC % 0 Sodium 133 L Potassium 3.5 Chloride 97 L Carbon Dioxide 28.0 Anion Gap 8 BUN 23 H Creatinine 0.86 Estim Creat Clear Calc 79.79 Est GFR (MDRD) Af Amer 89 Est GFR (MDRD) Non-Af 73 BUN/Creatinine Ratio 26.6 H Glucose 91 Calcium 11.1 H Total Bilirubin 0.50 AST 19 ALT 26 Alkaline Phosphatase 100 Total Protein 8.6 H Albumin 4.3 Globulin 4.3 H Albumin/Globulin Ratio 1.0 Lipase 22 Serum , Qual NEGATIVE Urine Color Yellow Urine Clarity Clear Urine pH 7.0 Ur Specific [place] 1.005 Urine Protein Negative Urine Glucose (UA) Normal Urine Ketones Negative Urine Occult Blood Negative Urine Nitrite Negative Urine Bilirubin Negative Urine Urobilinogen Normal Ur Leukocyte Esterase 100 H Urine RBC 0 SEEN Urine WBC 50-100 SEEN Ur Squamous Epith Cells 10-25 SEEN Urine Bacteria 1+ Urine Mucus 0 SEEN Radiography Diagnostic Testing: Clinical Impression(s) from Imaging Studies Abdomen/Pelvis CT 12/01/23 16:41 IMPRESSION: Cholelithiasis. Minimal mesenteric thickening/edema adjacent to the distal half of the transverse colon. 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 Right renal cyst. Fecal retention in the colon. Electronically Signed: Jens Boyer DO at 17:52 EDT Reading Location ID and State: [facility] / [place] Tel [phone], Service support , Discharge Plan Triage Chief Complaint: Abd Pain ED Provider: Jose Luis Weber Dx/Rx/DC Orders Clinical Impression: Abdominal pain, Ischemic colitis Instructions: Ischemic Colitis Prescriptions: New dicyclomine 10 mg capsule 20 mg PO TIDAC Qty: 30 0RF No Action valsartan-hydrochlorothiazide 1 EACH tablet 1 ea PO DAILY Patient Comments: bp levothyroxine 50 MCG tablet 50 mcg PO DAILY Patient Comments: THYROID pravastatin [Pravachol] 20 MG tablet 20 mg PO DAILY Patient Comments: CHOLESTEROL oxycodone 5 MG tablet 5 mg PO Q6H PRN PRN (Reason: Mod-Severe Pain (4-10/10)) Qty: 20 0RF docusate sodium [DOK] 100 MG capsule 100 mg PO BID PRN PRN (Reason: Constipation) Qty: 60 1RF Primary Care Provider: Karrie Herrera Referrals: Robby Jacinto DO [Med Staff - Active Staff] - 1 Week Karrie Herrera NP-C [Primary Care Provider] - Activity Restrictions/Additional Instructions: On Monday please call Dr. Jacinto's office. Advised them that you were diagnosed in the emergency room with ischemic colitis and that we spoke with Dr. Jacinto. He would like you to follow-up in around 1 week. Print Language: Greek Disposition Disposition: Home, Self Care Discharge Date/Time: 12/01/23 19:01
[2023-12-01 15:59] LABS: Bacteria 1+ /hpf (None Seen); Squamous Epithelial Cells - UA 10-25 SEEN /hpf (5-10); White Blood Cells 50-100 SEEN /hpf (0-5)
[2023-12-01 16:00] LABS: AST(SGOT) 19 U/L (15-37); Alanine Aminotransfer ALT/SGPT 26 U/L (13-56); Albumin, Serum 4.3 g/dL (3.2-5.0); Alkaline Phosphatase 100 U/L (45-117); Anion Gap 8 (5-15); BUN 23 mg/dL (7-18); BUN/Creat Ratio 26.6 RATIO (10-20); Calcium,Total 11.1 mg/dL (8.5-10.1); Chloride 97 mmol/L (98-107); Creatinine, Serum 0.86 mg/dL (0.55-1.02); EST Glomerular Filtration Rate 73 mL/min (>60); Est Glom Filt Rate - Afr Amer 89 mL/min (>60); Estimated Creatinine Clearance 79.79 ml/min; Globulin 4.3 g/dL (2.2-4.2); Glucose 91 mg/dL (74-106); Potassium 3.5 mmol/L (3.5-5.1); Protein, Total 8.6 g/dL (6.4-8.2); Sodium Level 133 mmol/L (136-145)
[2023-12-01 16:07] LABS: Internal QC Validated? YES +Cl - CLEAR BKGD; Pregnancy, Serum, hCG Quali. NEGATIVE Negative
[2023-12-01 16:10] LABS: Lipase 22 U/L (13-75)
--- NOTE | 2023-12-01 16:41 | CT_ITS ---
STUDY: CT ABDOMEN AND PELVIS WITH CONTRAST REASON FOR EXAM: Female, 53 years old. epigastric/LUQ pain RADIATION DOSAGE (If Supplied By Facility): CTDIvol = ( 18.51 ) mGy, DLP = ( 1185.84 ) mGycm TECHNIQUE: Transaxial images were obtained from the dome of the diaphragm to the symphysis pubis without oral contrast. IV 100mL Isovue-370 was administered. Sagittal and coronal images were reconstructed. Individualized dose optimization techniques were used for this CT. COMPARISON: None. FINDINGS: The visualized lung bases are unremarkable. The visualized portions of the heart are within normal limits. Normal liver. Cholelithiasis. No dilatation of the extrahepatic biliary system. Normal spleen. Normal pancreas. Minimal mesenteric thickening/edema adjacent to the distal half of the transverse colon. 3.4 cm fat-containing left adrenal mass suggesting a myelolipoma. 3 cm cyst in the right kidney. Normal left kidney. Normal visualized stomach. Normal small intestine. Fecal retention in the colon. The appendix is visualized and appears normal. Normal abdominal aorta. Normal inferior vena cava. Normal retroperitoneum. Normal urinary bladder. Normal abdominal wall. Normal osseous structures. CT/Abdomen/Pelvis W IV Cont ONLY IMPRESSION: Cholelithiasis. Minimal mesenteric thickening/edema adjacent to the distal half of the transverse colon. 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 Right renal cyst. Fecal retention in the colon. Electronically Signed: Jens Boyer DO at 17:52 EDT ,
== END 2023-12-01 19:01 | disposition home or self-care (01) ==
PROVIDERS: Emergency Provider Emergency Medicine; PCP Nurse Practitioner Family; Visit Provider Emergency Medicine
DX: R10.12 Left upper quadrant pain (principal); K55.9 Vascular disorder of intestine, unspecified; I10 Essential (primary) hypertension; Z79.899 Other long term (current) drug therapy; Z90.710 Acquired absence of both cervix and uterus
CPT/HCPCS: 74177; 80053; 81001; 83690; 84703; 85025; 99283; Q9967; A4216

== ENCOUNTER → 2023-12-04 | Outpatient (CLI) | payer BC, SELFPAY ==
[2023-12-04 17:44] LABS: Absolute Lymphocyte Count 2.81 X10^3/uL (0.83-4.51); Absolute Neutrophil Count 6.3 X10^3/uL (2.0-7.7); Eosinophil# 0.07 X10^3/uL; Eosinophils% 0.7 % (0-5); Hematocrit 35.8 % (37-47); Hemoglobin 12.2 g/dL (12.0-15.0); Lymphocyte # 2.81 X10^3/ul (0.83-4.51); Lymphocyte % 27.9 % (19-41); Mean Corp Hgb Conc 34.1 g/dL (32-36); Mean Corpuscular Hgb 29.8 pg (27.0-32.0); Mean Corpuscular Volume 87.5 fL (81-99); Mean Platelet Vol. 11.1 fl (6.2-12.0); Monocyte% 7.9 % (0-10); NRBC Flagged by Analyzer 0 % (0-5); Neutrophil # 6.27 X10^3/uL (2.7-7.7); Neutrophil % 62.3 % (47-70); Platelet Count 398 K/mm3 (150-450); RBC Distribution Width CV 13.2 % (11.6-14.6); RBC Distribution Width SD 42.2 fl (35.1-43.9); Red Blood Count 4.09 M/mm3 (4.2-5.4); White Blood Count 10.1 K/mm3 (4.4-11.0)
[2023-12-04 18:11] LABS: ALB/GLOB Ratio 0.8 RATIO (0.9-2.4); AST(SGOT) 14 U/L (15-37); Alanine Aminotransfer ALT/SGPT 28 U/L (13-56); Albumin, Serum 3.6 g/dL (3.2-5.0); Alkaline Phosphatase 110 U/L (45-117); Anion Gap 8 (5-15); BUN 23 mg/dL (7-18); BUN/Creat Ratio 24.4 RATIO (10-20); Calcium,Total 10.3 mg/dL (8.5-10.1); Chloride 103 mmol/L (98-107); Creatinine, Serum 0.94 mg/dL (0.55-1.02); EST Glomerular Filtration Rate 66 mL/min (>60); Est Glom Filt Rate - Afr Amer 80 mL/min (>60); Globulin 4.4 g/dL (2.2-4.2); Glucose 89 mg/dL (74-106); Potassium 3.4 mmol/L (3.5-5.1); Sodium Level 137 mmol/L (136-145)
== END | disposition home or self-care (01) ==
LOC: MTLAB 14:49
PROVIDERS: PCP Nurse Practitioner Family; Referring Provider Nurse Practitioner Family; Visit Provider Nurse Practitioner Family
DX: I10 Essential (primary) hypertension (principal)
CPT/HCPCS: 36415; 80053; 85025

== ENCOUNTER 2023-12-21 08:17 | Day surgery (SDC) | payer BC, SELFPAY ==
[2023-12-21] VITALS (8 sets, daily range): BP systolic 92–108; BP diastolic 60–78; PULSE 69–73; RESP 14–16; TEMP 36.1–36.7; O2SAT 94–100; BMI 37.8
--- NOTE | 2023-12-21 08:52 | PCM.PRE.AN2 ---
ASA Classification* ASA Classification ASA Classification: 3 Assessment & Plan Anesthesia* Anesthesia Assessment Anesthesia Assessment: Discussed sedation and/or anesthesia options, risks, benefits, and alternatives with patient/parents/legal guardian/POA. Questions invited. The patient/parents/legal guardian/POA seems to understand and agrees to proceed with anesthesia plan. Reviewed the physical assessment, medical history, allergy history and patient home medications list prior to surgery/procedure/anesthetic and documented any changes. Performed airway and anesthesia risk assessments. Anesthesia Type Anesthesia Type: MAC (see written pre anesthesia record for full assessment) Anesthesia Focused Assessment* Temperature: 97.5 F Pulse Rate: 69 Blood Pressure: 108/78 Respiratory Rate: 16 Pulse Ox: 100 Airway Assessment Mouth opens: >3 cm Mallampati Score: III Focused Labs Anesthesia Preop lab: CBC WBC 10.1 K/mm3 (4.4-11.0) 12/04/23 14:55 RBC 4.09 M/mm3 (4.2-5.4) L 12/04/23 14:55 Hgb 12.2 g/dL (12.0-15.0) 12/04/23 14:55 Hct 35.8 % (37-47) L 12/04/23 14:55 Plt Count 398 K/mm3 (150-450) 12/04/23 14:55 CHEMISTRY Potassium 3.4 mmol/L (3.5-5.1) L 12/04/23 14:55 Sodium 137 mmol/L (136-145) 12/04/23 14:55 BUN 23 mg/dL (7-18) H 12/04/23 14:55 Creatinine 0.94 mg/dL (0.55-1.02) 12/04/23 14:55 Glucose 89 mg/dL (74-106) 12/04/23 14:55 TSH 2.41 uIU/mL (0.358-3.74) 07/21/23 08:20 COAG PT 13.5 SECONDS (11.7-14.9) 09/28/16 15:43 Urine Test Negative Negative 10/03/16 05:50 Pre-Assessment Diagnosis/Proposed Procedure Planned Operative Procedure(s): CSCOPE Anesthesia History 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 When Was Last Pacemaker Check QUESTION #4 FULL TEXT: You/Your Family Experience fever (hyperthermia) with Anesthesia Last Oral Intake Last Oral intake: Last Oral Intake NPO since 06:00 12/21/23 08:47 Meds taken in AM with sips of water? Meds patient instructed to take am of surgery PONV PONV - regional commercial sales manager: PONV - regional commercial sales manager Female Yes 12/19/23 16:40 HX of Motion Sickness No 12/19/23 16:40 HX of N/V After Surgery No 12/19/23 16:40 Non-Smoker Yes 12/19/23 16:40 Duration of Surgery greater No 12/19/23 16:40 than 60 minutes Number of Risk Factors 2 12/19/23 16:40 PONV Score Moderate Risk 12/19/23 16:40 Height & Weight Height & Weight: Anesthesia: Height & Weight Height 5 ft 1 in 12/21/23 08:47 Weight: 90.718 kg 12/21/23 08:47 Body Mass Index (BMI) 37.8 12/21/23 08:47 Respiratory Assessment Respiratory Assessment - regional commercial sales manager: Respiratory Tract Infection Hx - regional commercial sales manager Hx Respiratory Tract Infection No 12/19/23 16:40 STOP Sleep Apnea STOP Sleep Apnea - regional commercial sales manager: STOP Sleep Apnea - regional commercial sales manager Hx Hypertension Yes: STATES CONTROLLED WITH 12/19/23 16:40 MED Hx Sleep Apnea No 12/19/23 16:40 CPAP BIPAP Do you snore loudly (louder No 12/19/23 16:40 than talking or can be heard Do you often feel tired/ No 12/19/23 16:40 fatigued/ sleepy during daytime? Has anyone observed you stop No 12/19/23 16:40 breathing during sleep? STOP Results Negative 12/19/23 16:40 QUESTION #5 FULL TEXT : Do you snore loudly (louder than talking or can be heard through closed doors)? 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 Specify any problems Hx of Preganancy in last 3 N/A 12/19/23 16:40 Months Nurse Filling Out Transfusion NBUCHER 12/19/23 16:40 & Questions: Date: 12/19/23 12/19/23 16:40 Time: 16:41 12/19/23 16:40 Patient unable to answer at this time (ie. confused, unrespo /Reproduction History /Reproductive History - regional commercial sales manager: /Reproductive Hx- regional commercial sales manager Hx Now No 12/19/23 16:40 Gestational Age (in weeks): EDC: Hx Hx Para Hx Section SAB No 12/19/23 16:40 Active Medications Active Medications: Current Medications Generic Name Dose Route Start Last Admin Trade Name Freq PRN Reason Stop Dose Admin Lactated Ringer's 1,000 mls @ 15 mls/hr 12/21/23 08:45 IV .Q48H DARIN PFSH Medical History Wears glasses Thyroid disease High cholesterol Heartburn Gastric reflux Non-smoker History of edema Leg cramps Hypertension Home Medications ?Medication ?Instructions ?Recorded ?Last Taken ?Type levothyroxine 50 mcg tablet 50 mcg PO DAILY 08/16/16 12/21/23 History pravastatin 20 mg tablet 20 mg PO DAILY 08/16/16 Unknown History (Pravachol) amlodipine 10 mg tablet 10 mg PO DAILY 12/08/23 12/21/23 06:30 History hydrochlorothiazide 25 mg tablet 25 mg PO DAILY 12/08/23 Unknown History phentermine 37.5 mg capsule 37.5 mg PO DAILY 12/08/23 Unknown History telmisartan 40 mg tablet 40 mg PO DAILY 12/08/23 Unknown History dicyclomine 10 mg capsule 20 mg PO TIDAC PRN abdominal pain 12/19/23 Unknown History Allergy/AdvReac Type Severity Reaction Status Date / Time No Known Allergies Allergy Verified 12/21/23 08:45 Surgical History H/O: hysterectomy History of tonsillectomy Social History Smoking Status: Never smoker Review of Systems (Anesthesia) ROS Narrative System reviewed and no additional complaints, except as documented.
[2023-12-21] MEDS: Lactated Ringers 1,000 ML 15 ML IV (08:56)
--- NOTE | 2023-12-21 09:15 | COLBX_PTH ---
PATIENT: SAVANNA BOSS LOC: EN U#:[id number] AGE/SX: 53/F ROOM: RE12/21/[address]: Dr. Robby Jacinto DO : 1970 BED: DIS: 12/21/2023 SPEC #: [id number] RECD: 12/21/23 12:53 STATUS: MELODY LILA #: [id number] MACARENA: 12/21/23 09:[address]: Robby Jacinto DEPT: SURGICAL PATHOLOGY RECD BY: Angelica Jewell ENTERED: 12/21/23 13:51 SP TYPE: COLON BX OTHR DR: Karrie Herrera, MANAGER [place]-C Tissues: A - Sigmoid colon biopsy B - Cecum, NOS C - Sigmoid colon biopsy D - Rectum, NOS Procedures: Surgery Specimen Level IV HEADER OPERATION: Colonoscopy, polypectomy PRE-OP DIAGNOSIS: Ischemic colitis TISSUE SUBMITTED: A- Sigmoid polyp, B- Cecal polyp biopsy, C- Sigmoid polyp biopsy, D- Rectal polyp MICROSCOPIC DIAGNOSIS A. Sigmoid polyp: Hyperplastic polyp. B. Cecal polyp biopsy: Fragments of tubular adenoma. C. Sigmoid polyp biopsy: Hyperplastic polyp. D. Rectal polyp, biopsy: Inflammatory polyp. AM/am 12/22/23 MICROSCOPIC DESCRIPTION Slides are reviewed. GROSS DESCRIPTION A. Received in fixative is one container labeled with the patient's name and designated Sigmoid polyp. The specimen consists of one irregular fragment of light bergeron soft tissue that measures 0.3 x 0.3 x 0.1 cm. The specimen is totally submitted in one cassette. B. Received in fixative is one container labeled with the patient's name and designated Cecal polyp. The specimen consists of two irregular fragments of light beregron soft tissue that in aggregate measure 0.4 x 0.2 x 0.1 cm. The specimen is totally submitted in one cassette. C. Received in fixative is one container labeled with the patient's name and designated Sigmoid polyp. The specimen consists of two irregular fragments of light bergeron soft tissue that in aggregate measure 0.4 x 0.2 x 0.1 cm. The specimen is totally submitted in one cassette. D. Received in fixative is one container labeled with the patient's name and designated Rectal polyp. The specimen consists of one irregular fragment of light bergeron soft tissue that measures 0.3 x 0.3 x 0.1 cm. The specimen is totally submitted in one cassette. SJ 12/21/2023 TC:5 [facility]:[id number]
--- NOTE | 2023-12-21 09:26 | HP.PCM_ITS ---
History and Physical Date of Admission: 12/21/23 SAVANNA BOSS, is a 53 F who presents to the office today for establishment with [facility] 12.01.23 with left upper quadrant pain and subsequently diagnosed with ischemic colitis. CT abdomen/pelvis 12.01.23; Cholelithiasis. Minimal mesenteric thickening/edema adjacent to the distal half of the transverse colon. 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 Right renal cyst. Fecal retention in the colon Biochemical work up 12.01.23; CBC with elevated WBC, CMP with NA 133 otherwise without pertinent abnormality OV 12.08.23 Patient has been doing better since her ED visit. She tells me she is no longer having severe abdominal pain. She has been able to eat most foods at this point. She has had some BRBPR recently. She does mention that she started phentermine 37.5 mg about 1 months ago but has not taken it since Monday. She wonders if this was the cause and wonders if she can still take it. Dicyclomine and acetaminophen has been somewhat helpful for her pain. She has never had a colonoscopy but did have a Cologuard recently which was without abnormality. Prior to the ischemic colitis she notes she has been constipated which she does relate to the phentermine. She has been using fiber, prunes and milk of mag. She denies diarrhea, nausea, heartburn or melena. ROS Const Constitutional: No fatigue, fever(s) or weight change ENT ENT: No difficulty swallowing Gastro GI: Positive for abdominal pain, bloating, change in bowel habits, constipation, heartburn and excessive flatus; No belching, change in stool character, coffee ground emesis, cramping, diarrhea, difficulty swallowing, feeling full early, incontinent of stools, Vomiting blood/hematemesis, Blood in stool, loose stools, Black,tarry stools, nausea/dyspepsia, pain with swallowing, vomiting or other Musc Musculoskeletal: No joint pain Skin Skin: No yellowing of the eye or itchy eyes Psych Psychiatric: No anxiety and No depression Endo Endocrine: No fatigue or weight change Aller/Imm Allergy/Immunologic: No itchy eyes Fabrice/Lymp Hematologic/Lymphatic: No easy bleeding or easy bruising Exam Const General: cooperative and comfortable Nutritional Appearance: average body habitus and well nourished HENNY Head: normal to inspection Ears: hearing grossly normal bilaterally Nose: external nose normal Face and sinus: normal facial exam Eyes General: appearance normal, both eyes and all related structures Neck Neck: normal visual inspection Chest Chest palpation & inspection: normal inspection of the chest Resp Effort & Inspection: normal respiratory effort Cardio Palpation: normal PMI GI Inspection: normal to inspection Palpation: no hepatosplenomegaly Skin General: no rashes or lesions noted Neuro General: patient alert Extrem General: normal to inspection Psych Affect: normal affect Assessment and Plan Assessment and Plan (1) Ischemic colitis: Status: Acute Plan: Patient is here today for establishment with [facility] after presenting to [facility] with LUQ pain and subsequently diagnosed with ischemic colitis. Since then she has been doing better with less abdominal pain. She also has complaints of constipation with large stools. Differential for etiology of ischemic colitis includes drug side effect, low profusion or infectious. -Will order stool testing to rule out any infectious causes; enteric pathogen panel, c.dif, parasite/ova, giardia, calprotectin and lactoferrin -She had CBC on 12.04.23 with resolved leukocytosis -Patient has never had a colonoscopy but is agreeable to having one at this point. She will be scheduled for procedure. Has had normal Cologuard test in the past -For her constipation she will start miralax once daily and titrate up to two doses daily, if needed. She will take fiber supplement every other day. -Advised patient that it is unclear if the phentermine caused the ischemic colitis. She will continue taking it and If she has any worsening symptoms she will discontinue. (2) Abdominal pain: Status: Acute Orders: Orders ENTERIC PATHOGEN PANEL STOOL Today K55.9 - Vascular disorder of intestine, unspecified, K58.9 - Irritable bowel syndrome without diarrhea Stool Lactoferrin/WBC Today K55.9 - Vascular disorder of intestine, unspecified, K58.9 - Irritable bowel syndrome without diarrhea Calprotectin, Stool Today K55.9 - Vascular disorder of intestine, unspecified OVA+PARA w/Giardia EIA [id number] Today K55.9 - Vascular disorder of intestine, unspecified CDIFF (PCR) Today K55.9 - Vascular disorder of intestine, unspecified Colonoscopy 12/21/23 K55.9 - Vascular disorder of intestine, unspecified, R10.9 - Unspecified abdominal pain Medications: Refilled dicyclomine 20 mg (2 x 10 mg) PO TIDAC 30 CAPSULES 0RF Discontinued oxycodone Discontinued Reason: Pt no longer taking 5 mg PO Q6H PRN PRN 20 TABLETS 0RF Mod-Severe Pain (4-01/24) docusate sodium (DOK) Discontinued Reason: Pt no longer taking 100 mg PO BID PRN PRN 60 caps 1RF Constipation I have examined the patient and the H&P has been reviewed. There are no clinical changes since date of exam.
--- NOTE | 2023-12-21 10:01 | OP.CCLET_ITS ---
12/21/2023 Artemio Chávez Re : Colonoscopy procedure for Cora Sánchez Dear Javier This procedure was performed on December. My impressions and recommendations are as follows: Impressions : - One 7 mm polyp in the rectum, removed with a cold snare. Resected and retrieved. - Two 1 to 2 mm polyps at the anus and in the sigmoid colon, removed with a cold snare. Resected and retrieved. - One 3 mm polyp in the cecum, removed with a jumbo cold forceps. Resected and retrieved. - Diverticulosis in the recto-sigmoid colon and in the sigmoid colon. Recommendations : - Discharge patient to home. - Resume previous diet. - Continue present medications. - Await pathology results. - Repeat colonoscopy in 5 years for surveillance. My findings are described in the full procedure note, which is enclosed. If I can be of further assistance, please feel free to contact me at . Sincerely, Robby Jacinto, 12/21/2023 10:00:07 AM This report has been signed electronically.
--- NOTE | 2023-12-21 10:01 | OP.COLON_ITS ---
Patient Name: Cora Sánchez Procedure Date: 12/21/2023 9:30 AM Date of : 1970 Age: 53 Procedure: Colonoscopy Indications: Screening for colorectal malignant neoplasm Providers: Robby Jacinto DO Medicines: Monitored Anesthesia Care Patient Profile: This is a 53 year old female. Refer to note in patient chart for documentation of history and physical. Last Colonoscopy: date unknown. Unable to locate last colonoscopy report. Complications: No immediate complications. Procedure: Pre-Anesthesia Assessment: - Prior to the procedure, a History and Physical was performed, and patient medications and allergies were reviewed. The patient is competent. The risks and benefits of the procedure and the sedation options and risks were discussed with the patient. All questions were answered and informed consent was obtained. Patient identification and proposed procedure were verified by the physician in the pre-procedure area. Mental Status Examination: alert and oriented. Airway Examination: normal oropharyngeal airway and neck mobility. Respiratory Examination: clear to auscultation. CV Examination: normal. Prophylactic Antibiotics: The patient does not require prophylactic antibiotics. Prior Anticoagulants: The patient has taken no anticoagulant or antiplatelet agents except for NSAID medication. ASA Grade Assessment: II - A patient with mild systemic disease. After reviewing the risks and benefits, the patient was deemed in satisfactory condition to undergo the procedure. The anesthesia plan was to use monitored anesthesia care (MAC). Immediately prior to administration of medications, the patient was re-assessed for adequacy to receive sedatives. The heart rate, respiratory rate, oxygen saturations, blood pressure, adequacy of pulmonary ventilation, and response to care were monitored throughout the procedure. The physical status of the patient was re-assessed after the procedure. After I obtained informed consent, the scope was passed under direct vision. Throughout the procedure, the patient's blood pressure, pulse, and oxygen saturations were monitored continuously. The Colonoscope was introduced through the anus and advanced to the cecum, identified by appendiceal orifice and ileocecal valve. The colonoscopy was performed without difficulty. The patient tolerated the procedure well. The quality of the bowel preparation was adequate. The ileocecal valve, appendiceal orifice, and rectum were photographed. Scope In: 9:38:25 AM Scope Withdrawal Time 0 hours 10 minutes 49 seconds Scope Out: 9:54:04 AM Total Procedure Duration Time 0 hours 15 minutes 39 seconds Findings: The perianal and digital rectal examinations were normal. A 7 mm polyp was found in the rectum. The polyp was sessile. The polyp was removed with a cold snare. Resection and retrieval were complete. Verification of patient identification for the specimen was done. Estimated blood loss was minimal. Two sessile polyps were found in the anus and sigmoid colon. The polyps were 1 to 2 mm in size. These polyps were removed with a cold snare. Resection and retrieval were complete. Verification of patient identification for the specimen was done. Estimated blood loss was minimal. A 3 mm polyp was found in the cecum. The polyp was sessile. The polyp was removed with a jumbo cold forceps. Resection and retrieval were complete. Verification of patient identification for the specimen was done. Estimated blood loss was minimal. A few small and large-mouthed diverticula were found in the recto-sigmoid colon and sigmoid colon. Impression: - One 7 mm polyp in the rectum, removed with a cold snare. Resected and retrieved. - Two 1 to 2 mm polyps at the anus and in the sigmoid colon, removed with a cold snare. Resected and retrieved. - One 3 mm polyp in the cecum, removed with a jumbo cold forceps. Resected and retrieved. - Diverticulosis in the recto-sigmoid colon and in the sigmoid colon. Recommendation: - Discharge patient to home. - Resume previous diet. - Continue present medications. - Await pathology results. - Repeat colonoscopy in 5 years for surveillance. Procedure Code(s): --- Professional --- 11380, Colonoscopy, flexible; with removal of tumor(s), polyp(s), or other lesion(s) by snare technique 39941, 59, Colonoscopy, flexible; with biopsy, single or multiple CPT copyright 2021 [employer]. All rights reserved. The codes documented in this report are preliminary and upon stock checkerer review may be revised to meet current compliance requirements. Robby Jacinto DO 12/21/2023 10:00:07 AM This report has been signed electronically. Number of Addenda: 0 Note Initiated On: 12/21/2023 9:30 AM
--- NOTE | 2023-12-21 10:02 | PCM.POST.ANE ---
Anesthesia: Postop Eval I Current Vital Signs Temperature: 97 F Pulse Rate: 72 Blood Pressure: 96/64 Respiratory Rate: 16 Pulse Ox: 97 Oxygen Delivery Method: Room Air Assessment Airway patent: Yes Spontaneous unlabored respirations: Yes Mental status: Asleep nausea: No Vomiting: No Anesthesia Complication: No Fluid Hydration Crystalloid volume administer (ml): 400 Total IV fluid infused: 400 Progress Note Anesthesia document: Postop Eval 1 completed: Yes
--- NOTE | 2023-12-21 13:41 | PCM.POSTANE2 ---
Anesthesia Postop Eval I Sum Postop Eval Completion status Anesthesia document: Postop Eval 1 completed: Yes Anesthesia Postop Eval I Summary Anesthesia Postop Eval I Summary: Anesthesia Postop Eval I: Assessment Summary Airway patent Yes 12/21/23 10:03 [email or web address] Spontaneous unlabored Yes 12/21/23 10:03 [email or web address] respirations Mental status Asleep 12/21/23 10:03 [email or web address] nausea No 12/21/23 10:03 [email or web address] Vomiting No 12/21/23 10:03 [email or web address] Anesthesia Postop Eval I: Fluid Summary Crystalloid volume administer 400 12/21/23 10:03 [email or web address] (ml) Colloids volume administered ( ml) Blood Product volume administered (ml) Total IV fluid infused 400 12/21/23 10:03 [email or web address] Anesthesia Postop Eval I: Summary Notes Anesthesia Complication No 12/21/23 10:03 [email or web address] Anesthesia Complication Comment: Post-operative progress note Anesthesia: Postop Eval II Evaluation Mental status: Awake Pain Level: 0 nausea: No Vomiting: No
== END 2023-12-21 11:05 | disposition home or self-care (01) ==
LOC: EN 08:17 → AC 08:20
PROVIDERS: PCP Nurse Practitioner Family; Referring Provider Nurse Practitioner Family; Visit Provider Internal Medicine Gastroenterology
PROC: 0DJD8ZZ Inspection of Lower Intestinal Tract, Via Natural or Artificial Opening Endoscopic (ICD-10-PCS; CPT 45378; principal; 2023-12-21 09:10)
DX: K55.9 Vascular disorder of intestine, unspecified (principal); K63.5 Polyp of colon; K62.1 Rectal polyp; K57.30 Diverticulosis of large intestine without perforation or abscess without bleeding; K62.0 Anal polyp; K58.9 Irritable bowel syndrome, unspecified; R10.12 Left upper quadrant pain; D12.0 Benign neoplasm of cecum
CPT/HCPCS: 45385; 45380; 88305; J7120; J2405